=== PATIENT | female | born 1975 | race Caucasian/White ===

== ENCOUNTER 2016-10-18 09:06 | Emergency (ER) | payer OTHER ==
[2016-10-18 09:10] VITALS: BP 132/61; PULSE 96; TEMP 98.2; BMI 40.3
--- NOTE | 2016-10-18 09:27 | PDOC ---
History of Present Illness - General Chief Complaint: Sore Throat Stated Complaint: THROAT PAIN Time Seen by Provider: 10/18/16 09:25 History Source: Patient Exam Limitations: No Limitations - History of Present Illness Initial Comments: 10/18/16 09:35 Here with complaints of fevers, chills, general body aches and nausea. Sore throat pain 2-3 days. States has had congestion and problems for over a month but states the past couple days has become much worse. Timing/Duration: reports: just prior to arrival, constant, getting worse Associated Symptoms: reports: fever/chills, headache, nasal congestion, nasal drainage, sore throat Past History - Travel Traveled outside of the country in the last 30 days: No Close contact w/someone who was outside of country & ill: No - Past Medical History Allergies/Adverse Reactions: Allergies Allergy/AdvReac Type Severity Reaction Status Date / Time metronidazole [From Flagyl] Allergy Mild Hives Verified 10/18/16 09:10 fluconazole [From Diflucan] Allergy Rash Verified 10/18/16 09:11 Home Medications: Ambulatory Orders Tramadol HCl 50 mg PO BID PRN 02/08/15 Anemia: No Asthma: No Cancer: No Cardiac Disorders: No CVA: No COPD: No CHF: No Dementia: No Diabetes: No GI Disorders: No Disorders: No HTN: No Hypercholesterolemia: No Liver Disease: No Seizures: No Thyroid Disease: No - Surgical History Abdominal Surgery: No Appendectomy: No Cardiac Surgery: No Cholecystectomy: No Lung Surgery: No Neurologic Surgery: No Orthopedic Surgery: No - Immunization History Immunization Up to Date: No - Psycho/Social/Smoking Cessation Hx Anxiety: No Suicidal Ideation: No Smoking History: Never smoked Have you smoked in the past 12 months: No Hx Alcohol Use: No Drug/Substance Use Hx: No Substance Use Type: None Hx Substance Use Treatment: No Review of Systems - Review of Systems Able to Perform ROS?: Yes Is the patient limited Lithuanian proficient: Yes Constitutional: Yes: Symptoms Reported, See HPI, Chills, Fever, Loss of Appetite , Malaise HEENTM: Yes: Symptoms Reported, See HPI, Throat Pain, Difficulty Swallowing Respiratory: Yes: Symptoms reported Musculoskeletal: No: Symptoms Reported Integumentary: Yes: Symptoms Reported All Other Systems: Reviewed and Negative *Physical Exam - Vital Signs Last Vital Signs Temp Pulse Resp BP Pulse Ox 98.2 F 96 H 20 132/61 97 10/18/16 09:08 10/18/16 09:08 10/18/16 09:08 10/18/16 09:08 10/18/16 09:08 - Physical Exam General Appearance: Yes: Appropriately Dressed, Apparent Distress HEENT: positive: YUN, TMs Normal, Muffled/Hoarse voice, Pharyngeal Erythema, Rhinorrhea, Sinus Tenderness. negative: Tonsillar Exudate Respiratory/Chest: positive: Lungs Clear, Normal Breath Sounds, Wheezing Cardiovascular: positive: Regular Rate Gastrointestinal/Abdominal: positive: Soft. 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 Bicillin 1.2 million units IM even with no reaction after 30 minutes *DC/Admit/Observation/Transfer Diagnosis at time of Disposition: Strep pharyngitis - Discharge Dispostion Disposition: HOME Condition at time of disposition: Stable Admit: No - Patient Instructions Printed Discharge Instructions: DI for Strep Throat Additional Instructions: Rest, drink lots of fluids: Teas, water, soups Eat cold things: Ice cream, ice pops, ice chips Saltwater gargles Steamy showers/seem to face break up mucus Avoid contact with others until fevers and pain resolved Lots of handwashing and good hygiene, this is contagious You have been treated with Bicillin LA 1.2 million units injection which is a one-time treatment for strep pharyngitis. You will not need to take any further antibiotics. Tylenol or Motrin for fever and pain Followup with private physician in one to 2 days as needed if not improving Return to emergency department for worsened symptoms, fevers, dehydration
[2016-10-18] MEDS ORDERED: IBUPROFEN 600 MG TABLET (FP) PO ONE (09:33)
[2016-10-18] MEDS ORDERED: PENICILLIN G BENZATHINE 1,200,000 UNIT/2 ML PFS IM ONE (10:33)
[2016-10-18] MEDS ORDERED: PENICILLIN G BENZATHINE 2,400,000 UNIT/4 ML PFS ONE (10:35)
== END 2016-10-18 11:00 | disposition home or self-care (01) ==
LOC: JERFT 09:06
DX: J02.0 Streptococcal pharyngitis (principal); B95.0 Streptococcus, group A, as the cause of diseases classified elsewhere
CPT/HCPCS: 87070; 87077; 87430; 87804; 96372; 99281-25

== ENCOUNTER 2016-11-10 08:38 | Emergency (ER) | payer OTHER ==
[2016-11-10 08:57] VITALS: BP 146/77; PULSE 87; TEMP 97.9; BMI 40.3
--- NOTE | 2016-11-10 09:35 | PDOC ---
History of Present Illness - General Chief Complaint: Vaginal Sxs Stated Complaint: SICK Time Seen by Provider: 11/10/16 09:34 History Source: Patient Exam Limitations: No Limitations - History of Present Illness Initial Comments: CHIEF COMPLAINT: 41 y/o female c/o vaginal discharge and itching for the past 2 days. HISTORY OF PRESENT ILLNESS: The patient has history of recurrent yeast and BV infections. She isn't sure what this is but describes thick white discharge, vaginal irritation and odor. She also admits to unprotected sex with a new partner about 1 week ago. She denies all other symptoms. Vital signs on arrival are within normal limits. REVIEW OF SYSTEMS: GENERAL/CONSTITUTIONAL: No fever/chills. No weakness. No weight change. GASTROINTESTINAL: No abd pain, nausea, vomiting, diarrhea. GENITOURINARY: No dysuria, frequency, or change in urination. VAGINAL: +thick, white discharge with foul odor and vaginal irritation. MUSCULOSKELETAL: No joint or muscle swelling or pain. No neck or back pain. SKIN: No rash or easy bruising. NEUROLOGIC: No headache, vertigo, loss of consciousness, or loss of sensation. PHYSICAL EXAM: GENERAL: The patient is awake, alert, and fully oriented, in no acute distress. She is morbidly obese. ABDOMEN: Soft, non-distended, non-tender even to deep palpation, no hepatomegaly or splenomegaly, no masses. VAGINAL: Thick white discharge seen in vagina without foul odor. External genitalia is mildly erythematous. EXTREMITIES: Normal range of motion, no edema. NEUROLOGICAL: Normal speech, normal gait. CN II-XII grossly intact. SKIN: Warm, dry, normal turgor, no rashes or lesions noted. Past History - Past Medical History Allergies/Adverse Reactions: Allergies Allergy/AdvReac Type Severity Reaction Status Date / Time metronidazole [From Flagyl] Allergy Mild Hives Verified 11/10/16 08:53 fluconazole [From Diflucan] Allergy Rash Verified 11/10/16 08:53 Home Medications: Ambulatory Orders Miconazole Nitrate [Monistat 3] 1 each VG HS #1 kit 11/10/16 Anemia: No Asthma: No Cancer: No Cardiac Disorders: No CVA: No COPD: No CHF: No Dementia: No Diabetes: No GI Disorders: No Disorders: No HTN: No Hypercholesterolemia: No Liver Disease: No Seizures: No Thyroid Disease: No Other medical history: ARTHRITIS, "PINCHED NERVE IN BACK" - Surgical History Abdominal Surgery: No Appendectomy: No Cardiac Surgery: No Cholecystectomy: No Lung Surgery: No Neurologic Surgery: No Orthopedic Surgery: No - Immunization History Immunization Up to Date: No - Psycho/Social/Smoking Cessation Hx Anxiety: No Suicidal Ideation: No Smoking History: Never smoked Have you smoked in the past 12 months: No Hx Alcohol Use: No Drug/Substance Use Hx: No Substance Use Type: None Hx Substance Use Treatment: No *Physical Exam - Vital Signs Last Vital Signs Temp Pulse Resp BP Pulse Ox 97.9 F 87 19 146/77 98 11/10/16 08:54 11/10/16 08:54 11/10/16 08:54 11/10/16 08:54 11/10/16 08:54 Medical Decision Making - Medical Decision Making A/P: 41 y/o female with what appears to be a yeast infection on exam. Plan is as follows: 1. UA/hcg/culture 2. Genital culture 3. GC/chlamydia The patient would prefer to wait for GC/chlamydia results and not be treated empirically. The patient states one time she took diflucan and got hives and then another time she took it and had no reaction. Suggested monistat 3 for tx of the yeast infection instead of diflucan. Instructed her to return to the ER with any worsening or concerning symptoms. Informed her that we will call within 48-72 hours with any positive results. The patient verbalizes understanding of all instructions, has no further questions and is awaiting discharge. *DC/Admit/Observation/Transfer Diagnosis at time of Disposition: Yeast infection - Discharge Dispostion Disposition: HOME Condition at time of disposition: Good - Prescriptions Prescriptions: Miconazole Nitrate [Monistat 3] 1 each HS #1 kit - Referrals Referrals: José Miguel Marie MD [Primary Care Provider] - - Patient Instructions Printed Discharge Instructions: DI for Vaginal Yeast Infection Additional Instructions: Discharge Instructions: -You have a yeast infection -Sick you are allergic to Diflucan by mouth, please buy over the counter Monistat 3 and try treating your infection with that -You were checked for GC/chlamydia in the ER; if results are positive you will receive a call in 48-72 hours. -Return to the ER with any worsening or concerning symptoms
[2016-11-10 09:36] LABS: URINE APPEARANCE CLOUDY; URINE BILIRUBIN NEGATIVE (NEGATIVE); URINE BLOOD NEGATIVE (NEGATIVE); URINE COLOR YELLOW; URINE GLUCOSE (UA) NEGATIVE (NEGATIVE); URINE KETONE NEGATIVE (NEGATIVE); URINE NITRITE NEGATIVE (NEGATIVE); URINE PROTEIN NEGATIVE (NEGATIVE); URINE UROBILINOGEN NEGATIVE E.U./dl (0.2-1.0)
[2016-11-10 09:37] LABS: URINE LEUK ESTERASE 3+ (NEGATIVE)
[2016-11-10 09:59] LABS: URINE BACTERIA RARE /hpf (NONE SEEN); URINE MUCUS RARE; URINE RBC 12 /hpf (0-3); URINE WBC 7 /hpf (3-5)
== END 2016-11-10 10:26 | disposition home or self-care (01) ==
LOC: JERFT 08:38
DX: B37.3 Candidiasis of vulva and vagina (principal)
CPT/HCPCS: 36415; 81003; 81015; 84703; 87070; 87205; 87491; 87591; 99281-25

== ENCOUNTER 2018-01-01 20:00 | Emergency (ER) | payer OTHER ==
--- NOTE | 2018-01-01 20:26 | PDOC ---
Rapid Medical Evaluation Time Seen by Provider: 01/01/18 20:18 Medical Evaluation: Allergies Allergy/AdvReac Type Severity Reaction Status Date / Time metronidazole [From Flagyl] Allergy Mild Hives Verified 11/10/16 08:53 fluconazole [From Diflucan] Allergy Rash Verified 11/10/16 08:53 01/01/18 20:23 I have performed a brief in-person evaluation of this patient. The patient presents with a chief complaint of: Right ant prox leg ecchymosis s/ p fall x 3 weeks ago then x2d ago when she was getting off a ride in the park in [place]. Pt also c/o "yeast infection" vaginal burn/itch w/o discharge/fever/chills/ flank pain. LMP: 12/30/2017 Pertinent physical exam findings: Abd soft/NT/ND I have ordered the following: UA, UC, Upreg The patient will proceed to the ED for further evaluation
[2018-01-01 20:27] VITALS: BP 107/59; PULSE 81; TEMP 98; BMI 41.9
--- NOTE | 2018-01-01 20:59 | PDOC ---
History of Present Illness - General Chief Complaint: Vaginal Sxs Stated Complaint: fall/vaginal itching Time Seen by Provider: 01/01/18 20:18 - History of Present Illness Initial Comments: 42-year-old female without comorbidities presents for evaluation of dysuria 2 days. She states she was recently on an antibiotic Omnicef for sinusitis. 01/01/18 20:58 Past History - Past Medical History Allergies/Adverse Reactions: Allergies Allergy/AdvReac Type Severity Reaction Status Date / Time metronidazole [From Flagyl] Allergy Mild Hives Verified 01/01/18 20:27 fluconazole [From Diflucan] Allergy Rash Verified 01/01/18 20:27 Home Medications: Ambulatory Orders Sulfamethoxazole/Trimethoprim [Bactrim Ds -] 1 tab PO BID #14 tablet 01/01/18 Anemia: No Asthma: No Cancer: No Cardiac Disorders: No CVA: No COPD: No CHF: No Dementia: No Diabetes: No GI Disorders: No Disorders: No HTN: No Hypercholesterolemia: No Liver Disease: No Seizures: No Thyroid Disease: No - Surgical History Abdominal Surgery: No Appendectomy: No Cardiac Surgery: No Cholecystectomy: No Lung Surgery: No Neurologic Surgery: No Orthopedic Surgery: No - Immunization History Immunization Up to Date: No - Suicide/Smoking/Psychosocial Hx Smoking History: Never smoked Have you smoked in the past 12 months: No Information on smoking cessation initiated: No Hx Alcohol Use: No Drug/Substance Use Hx: No Substance Use Type: None Hx Substance Use Treatment: No Review of Systems - Review of Systems : Yes: See HPI, Burning, Dysuria All Other Systems: Reviewed and Negative *Physical Exam - Vital Signs Last Vital Signs Temp Pulse Resp BP Pulse Ox 98.0 F 81 16 107/59 98 01/01/18 20:25 01/01/18 20:25 01/01/18 20:25 01/01/18 20:25 01/01/18 20:25 - Physical Exam Comments: GENERAL: The patient is awake, alert, and fully oriented, in no acute distress. HEAD: Normal with no signs of trauma. EYES: conjunctiva clear. EXTREMITIES: Normal range of motion, no edema. No clubbing or cyanosis. No cords, erythema, or tenderness. NEUROLOGICAL: Cranial nerves II through XII grossly intact. Normal speech, normal gait. PSYCH: Normal mood, normal affect. SKIN: Warm, Dry, normal turgor, no rashes or lesions noted. 01/01/18 20:58 01/01/18 22:46 Right knee skin color and temperature are normal there is mild ecchymosis about the medial laxity second of the proximal tibia. Which is minimally tender. She has full range of motion no joint line tenderness most of her tenderness is from the patellofemoral joint she has mild patellofemoral crepitation. Thigh and calf is soft and nontender she has no gross sensorimotor deficits negative straight leg raise test she is neurovascularly intact. No evidence of instability. 01/01/18 22:52 Left foot skin color and temperature are normal there is full range of motion mild tenderness over the base of the fifth metatarsal and the lateral aspect of the foot. No gross sensory and motor deficits. Medical Decision Making - Medical Decision Making X-rays of further normal. She has a knee contusion a foot sprain any urinary tract infection. I will treat her with Bactrim. 01/01/18 22:53 *DC/Admit/Observation/Transfer Diagnosis at time of Disposition: UTI (urinary tract infection), Contusion, knee and lower leg, Sprain of foot - Discharge Dispostion Disposition: HOME Condition at time of disposition: Stable Decision to Admit order: No - Prescriptions Prescriptions: Sulfamethoxazole/Trimethoprim [Bactrim Ds -] 1 tab PO BID #14 tablet - Referrals Referrals: Jaylin Dowell MD [Primary Care Provider] - Sen Crowder MD [Staff Physician] - - Patient Instructions Printed Discharge Instructions: Contusion, Urinary Tract Infection Additional Instructions: Please take all the antibiotics as prescribed. Return to the emergency room should her symptoms worsen or go unresolved. Follow-up with her primary care doctor for further evaluation and treatment options. Also follow-up with orthopedics for reevaluation of your knee and foot. Follow-up should be done within next 1-2 days. - Post Discharge Activity
[2018-01-01 21:46] LABS: URINE APPEARANCE CLEAR; URINE BILIRUBIN NEGATIVE (<2.0 mg/dL); URINE COLOR YELLOW; URINE GLUCOSE (UA) NEGATIVE (NEGATIVE); URINE KETONE NEGATIVE (NEGATIVE); URINE NITRITE NEGATIVE (NEGATIVE); URINE PROTEIN NEGATIVE (NEGATIVE); URINE UROBILINOGEN NEGATIVE mg/dL (0.2-1.0)
[2018-01-01 21:47] LABS: URINE LEUK ESTERASE 1+ (NEGATIVE)
[2018-01-01 21:51] LABS: EPI CELLS RARE /HPF (FEW); URINE BACTERIA RARE /hpf (NONE SEEN); URINE MUCUS RARE
[2018-01-01 21:55] LABS: HCG,QUALITATIVE URINE NEGATIVE
[2018-01-01] MEDS ORDERED: SULFAMETHOXAZOLE/TRIMETHOPRIM 800MG/160MG D.S. TABLET PO ONE (22:56)
[2018-01-01] MEDS ORDERED: SULFAMETHOXAZOLE/TRIMETHOPRIM 800MG/160MG D.S. TABLET ONE (22:57)
== END 2018-01-01 22:59 | disposition home or self-care (01) ==
LOC: JERFT 20:00
DX: N39.0 Urinary tract infection, site not specified (principal); S80.11XA Contusion of right lower leg, initial encounter; W31.81XA Contact with recreational machinery, initial encounter; Y93.89 Activity, other specified; Y92.831 Amusement park as the place of occurrence of the external cause; Y99.8 Other external cause status
CPT/HCPCS: 73630-TC-RT-FY; 81003; 81015; 84703; 87086; 99281-25